=== PATIENT | male | born 1955 | race Caucasian/White ===

== ENCOUNTER 2019-03-19 07:43 | Day surgery (SDC) | payer MEDICARE, OTHER, SELFPAY ==
[2019-03-19 08:30] VITALS: BP 131/83; PULSE 62; RESP 16; TEMP 36.8; O2SAT 98; BMI 56.2
--- NOTE | 2019-03-19 09:24 | PM.HP.1 ---
History of Present Illness History of Present Illness Date Patient Seen: 03/19/19 Time Patient Seen: 09:18 Chief complaint: [id number] Narrative: The patient is a gentleman here for screening colonoscopy. Last exam was 4 years ago. He had polyps removed at that time. Patient History Medical History Arthritis (Acute) Diverticulitis (Acute) GERD (gastroesophageal reflux disease) (Acute) Hypertension (Acute) Surgical History (Updated 03/19/19 @ 09:26 by Remy Hayes MD) Status post carpal tunnel release (Acute) Family History (Updated 03/19/19 @ 09:26 by Remy Hayes MD) Other Cancer Social History household members: spouse Family & Social History Family History (Updated 03/19/19 @ 09:26 by Remy Hayes MD) Other Cancer Social History: household members spouse Meds Home Medications and Allergies Home Medications Medication Instructions Recorded Confirmed Type acetaminophen [Tylenol Extra 1,000 mg PO QID PRN 03/19/19 03/19/19 History Strength] ascorbic acid (vitamin C) [Vitamin 500 mg PO DAILY 03/19/19 03/19/19 History C] chlorthalidone 25 mg PO DAILY 03/19/19 03/19/19 History coenzyme Q10 [Co Q-10] 200 mg PO DAILY 03/19/19 03/19/19 History glucos sul [id number] 1 cap PO DAILY 03/19/19 03/19/19 History [Glucosamine Chondroitin] loratadine 10 mg PO DAILY 03/19/19 03/19/19 History lysine [L-Lysine] 500 mg PO DAILY 03/19/19 03/19/19 History magnesium 500 mg PO DAILY 03/19/19 03/19/19 History naproxen sodium 220 mg PO DAILY 03/19/19 03/19/19 History niacin 250 mg PO DAILY 03/19/19 03/19/19 History potassium gluconate 550 mg PO DAILY 03/19/19 03/19/19 History vitamin B complex [Super B-50 1 cap PO DAILY 03/19/19 03/19/19 History Complex] vitamin E 200 unit PO DAILY 03/19/19 03/19/19 History zinc 50 mg PO DAILY 03/19/19 03/19/19 History Review of Systems Review of Systems ROS Unobtainable: All systems reviewed & are unremarkable except as noted in HPI and below Exam Vital Signs (past 8 hours): - 03/19/19 08:30 Temperature 98.3 F Pulse Rate 62 Respiratory Rate 16 Blood Pressure 131/83 Pulse Oximetry 98 Oxygen Delivery Method Room Air Narrative Exam Narrative: Pleasant cooperative patient no apparent distress. Lungs are clear to auscultation. No rales or rhonchi. Heart regular rate and rhythm no murmur gallop. Abdomen is soft nontender without mass. No obvious hernias. Patient is alert and oriented x3. Assessment & Plan Assessment & Plan narrative: The patient for a screening colonoscopy. I have discussed the procedure with them. Risks of bleeding, perforation which would necessitate major operation, failure to find remove all lesions, the potential tattoo were all discussed. All questions were answered. They wished to proceed.
--- NOTE | 2019-03-19 09:27 | PM.PREOP ---
Pre-operative Note Interval Note History & Physical reviewed/Exam performed by Physician: Yes Changes to H&P: No ASA Class (for procedural sedation): I
[2019-03-19] MEDS: fentaNYL 250 MCG/5 ML INJ IV (09:56)
[2019-03-19] MEDS: MIDAZOLAM 5 MG/5 ML VIAL IV (09:57)
--- NOTE | 2019-03-19 09:58 | PM.OP.ENDO ---
Operative Date/Time/Diagnoses Date of procedure: 03/19/19 Time of procedure: 09:58 Pre-op diagnosis: Screening exam. Last exam 4 years ago. Personal history of polyps. Post-op diagnosis: same (Diverticulosis) Procedure & Clinicians Study performed: Colonoscopy Same procedure as scheduled: Yes Indications: Screening Surgeon: Remy Hayes Procedure Notes SCOAP/Timeout: Performed Procedure in detail: The patient was placed in the left lateral decubitus position and underwent IV sedation directed by the surgeon consisting of fentanyl and Versed. Digital exam was unremarkable. Prostate flat.. The scope was inserted and advanced through the rectum into the sigmoid, descending, transverse, and ascending colon. Diverticulosis was noted principally in the sigmoid colon. There was some mild tortuosity in that area as well. The cecum was reached identified by the ileocecal valve and the appendiceal opening. The scope was gradually brought out. No Polyps were found. The scope ultimately was retroflexed in the rectum. The appearance was normal. The scope was removed and the patient tolerated the procedure well. Prep was very good Scope withdrawal time: 8 minutes Sedation minutes: 23 Findings: diverticulosis Specimen(s): none sent Complications: none Post-procedure Recommendations: Colonscopy in 5 years (Due to history of polyps) Follow up: as needed Disposition: PACU
[2019-03-19 09:59] VITALS: BP 128/68; PULSE 65; RESP 12; TEMP 36.4; O2SAT 98
[2019-03-19 10:03] VITALS: BP 120/69; PULSE 60; RESP 10; TEMP 36.4; O2SAT 99
[2019-03-19 10:07] VITALS: BP 126/73; PULSE 63; RESP 12; TEMP 36.8; O2SAT 99
== END 2019-03-19 10:27 | disposition home or self-care (01) ==
PROVIDERS: PCP Family Medicine; Visit Provider Specialist
PROC: 0DJD8ZZ Inspection of Lower Intestinal Tract, Via Natural or Artificial Opening Endoscopic (ICD-10-PCS; CPT 45378; principal; 2019-03-19 09:00)
DX: Z86.010 Personal history of colon polyps (principal); I10 Essential (primary) hypertension; K57.30 Diverticulosis of large intestine without perforation or abscess without bleeding
CPT/HCPCS: G0105; 99152; J2250; J3010

== ENCOUNTER → 2024-01-30 13:43 | Outpatient (CLI) | payer MEDICARE, OTHER, SELFPAY ==
--- NOTE | 2024-01-30 13:46 | DI.ECHO.S_ITS ---
[facility] : : [address] : : [place] : : [id number] : : Phone: [phone] Echocardiogram Report + + :Name: LAURA PACHECO Study Date: 01/30/2024 Height: 65.5 in: :[facility] ReadingLocation: Weight: 170 lb : : Gender: Male BSA: 1.9 m2 : :: 1955 Age: 68 yrs BP: 151/90 mmHg: :Reason For Study: CHEST PAIN : :Ordering Physician: FARNAZ MIRANDA Performed By: Beth Arguello : :Referring: FARNAZ MIRANDA : + + Interpretation Summary 1. Normal LV contractility with EF > 55% and no segmental WMA. Normal diastolic function. No LVH. 2. Normal RV contractility. 3. Normal cardiac chamber sizes. 4. Trace to mild MR. 5. No obvious intracardiac shunts. 6. No obvious intracardiac masses/thrombi. 7. No hemodynamically significant pericardial effusion. Conclusion: Normal biventricular function without significant valvular abnormalities. Procedure: A two-dimensional transthoracic echocardiogram with color flow and Doppler was performed. The study quality was technically adequate. There is no prior echocardiogram noted for this patient. The patient was in sinus rhythm with heart rates between 65-73 bpm during the exam. Left Ventricle: The left ventricle is normal in size and wall thickness. The ejection fraction is estimated to be 55-60%. Right Ventricle: The right ventricle is at the upper limits of normal in size. The right ventricular systolic function is normal. Atria: The left atrial size is normal. Right atrial size is normal. There is no Doppler evidence for an interatrial shunt. Mitral Valve: The mitral valve is normal in structure and function. There is mild mitral regurgitation. Aortic Valve: The aortic valve is trileaflet. The aortic valve opens well. There is no aortic valve stenosis. No aortic regurgitation is present. Tricuspid Valve: The tricuspid valve is normal in structure and function. There is trace tricuspid regurgitation. Pulmonary artery pressures cannot be estimated because of the lack of a measurable TR jet velocity. Pulmonic Valve: The pulmonic valve leaflets are thin and pliable; valve motion is normal. There is trace pulmonic regurgitation. Great Vessels: The aortic root is normal size. The dimensions of the ascending aorta are normal. The IVC is of normal diameter and collapses greater than 50% with a sniff. This suggests a low right atrial pressure of 3 mm Hg. Pericardium/ Pleura There is no pericardial effusion. There is no pleural effusion. MMode/2D Measurements & Calculations LVIDd: 5.3 cm LVOT diam: 2.1 cm LVIDs: 3.4 cm Ao root diam: 3.4 cm FS: 36.5 % asc Aorta Diam: 3.7 cm IVSd: 0.86 cm Ao Arch Diam (Prox Trans): 3.1 cm LVPWd: 0.70 cm LV lerner. diameter/BSA (cm/m^2): 2.9 LV sys. diameter/BSA (cm/m^2): 1.8 LA A2 area: 20.3 cm2 RA long axis: 5.2 cm LA A4 area: 16.9 cm2 RA area: 15.0 cm2 LA length (vol): 5.2 cm RA vol: 36.8 ml LA vol: 55.6 ml RA : 19.8 ml/m2 LA vol index: 29.9 ml/m2 IVC diam: 1.2 cm RVD1 (basal): 3.9 cm TAPSE: 1.8 cm Doppler Measurements & Calculations Ao V2 max: 126.5 cm/sec LVOT Max Ariel: 103.9 cm/sec Ao V2 mean: 92.8 cm/sec LV V1 max P.3 mmHg Ao max P.4 mmHg LV V1 VTI: 20.9 cm Ao mean P.7 mmHg ESTEBAN(I,D): 2.5 cm2 Ao V2 VTI: 30.4 cm ESTEBAN(V,D): 2.9 cm2 sev ratio: 0.69 ESTEBAN indexed to BSA (cm^2/m^2): 1.3 MV E max ariel: 70.7 cm/sec PA V2 max: 96.2 cm/sec MV A max ariel: 85.5 cm/sec PA V2 mean: 61.4 cm/sec MV E/A: 0.83 PA mean P.7 mmHg Med Peak E' Ariel: 7.6 cm/sec PA pr(Accel): 36.2 mmHg E/E' med: 9.3 Lat Peak E' Ariel: 11.5 cm/sec E/E' lat: 6.1 E/e' average: 7.7 MV dec time: 0.19 sec [facility]): 74.5 ml Reading Physician:
--- NOTE | 2024-01-30 13:47 | DI.NM.S_ITS ---
PROCEDURE: NM EXERCISE TREADMILL NON NUC COMPARISON: None. INDICATIONS: Chest pain, unspecified FINDINGS: The patient exercised for 9 minutes and 1 second reaching 115% of maximum predicted heart rate. 9.7METS, NORMA -27%. Borderline hypertensive response to exercise (resting BP 144/88mmHg, max BP 206/86mmHg). No angina and no diagnostic ST changes during exercise or recovery. Brief run (probably less than 1 minute) run of supraventricular tachycardia at peak exercise that self-resolved. IMPRESSION: Low risk, normal treadmill ECG only stress test from inducible ischemia standpoint. Brief run (probably less than 1 minute-unable to report complete duration as start and end not seen) run of supraventricular tachycardia at peak exercise that self-resolved. Borderline hypertensive response to exercise (resting BP 144/88mmHg, max BP 206/86mmHg). Dictated by: Tereso Perrin MD on 01/30/2024 at 17:22 Approved by: Tereso Perrin MD on 01/30/2024 at 17:33
== END ==
PROVIDERS: Referring Provider Internal Medicine; Visit Provider Internal Medicine
DX: I34.0 Nonrheumatic mitral (valve) insufficiency (principal); R07.9 Chest pain, unspecified
CPT/HCPCS: 93017; 93306

== ENCOUNTER → 2024-03-08 12:35 | Outpatient (CLI) | payer MEDICARE, OTHER, SELFPAY ==
--- NOTE | 2024-03-08 12:36 | DI.US.S_ITS ---
PROCEDURE: US ABDOMEN COMPLETE INDICATIONS: ABDOMINAL PAIN TECHNIQUE: Real-time scanning was performed of the abdominal and retroperitoneal organs, with image documentation. COMPARISON: None. FINDINGS: Liver: Liver is normal in size and homogeneous in echotexture. Gallbladder: No findings of gallstones or sludge are seen. The gallbladder wall is not thickened, measuring 3 mm or less. No specific pericholecystic fluid is seen. The sonographic Singleton sign is negative. Biliary ducts: Intrahepatic bile ducts are non-dilated. Extrahepatic bile duct caliber measures 4 mm. Normal is 6-7 mm or less in diameter, or 10 mm or less post-cholecystectomy. Pancreas: Visualized portions of the pancreas are sonographically normal. Spleen: Spleen is normal in size and homogeneous in echotexture. Kidneys: Kidneys are normal in size and echotexture. Right kidney measures 10.6 cm long; left kidney measures 10.4 cm long. No nephrolithiasis. No solid masses. On the right there is [id number] hydronephrosis. On the left, there is moderate to severe hydronephrosis. Aorta: Visualized aorta is normal in caliber at less than 3 cm. Iliacs: Proximal common iliac arteries are normal in caliber at less than 2.5 cm. IVC: Intrahepatic inferior vena cava is patent. Miscellaneous: No free abdominal fluid. The prevoid bladder volume is 200 cc. The postvoid bladder volume is 0 cc. Neither of the ureteral jets are seen into the bladder. IMPRESSION: Bilateral hydronephrosis can be seen, left worse than right. No cause of obstruction is seen on these images. No postvoid residual. Please consider additional workup, beginning with a CT IVP. Dictated by: Jeferson Givens M.D. on 03/08/2024 at 13:48 Approved by: Jeferson Givens M.D. on 03/08/2024 at 13:49
== END ==
PROVIDERS: Referring Provider Nurse Practitioner Family; Visit Provider Nurse Practitioner Family
DX: R10.9 Unspecified abdominal pain (principal); N13.30 Unspecified hydronephrosis
CPT/HCPCS: 76700